=== PATIENT | male | born 1975 | race Caucasian/White ===

== ENCOUNTER 2018-01-25 23:16 | Emergency (ER) | END 2018-01-26 01:13 | disposition home or self-care (01) ==

== ENCOUNTER 2018-02-24 03:55 | Emergency (ER) | payer OTHER ==
[~2018-02-24] VITALS: Ht 182.9 cm; Wt 83.0 kg
[~2018-02-24 03:55] MED LIST: CEPH-443 PO; CEPH500C PO; HYDR-3498 PO; IBUP-1542 PO; NAPR-985 PO; SULF1TAB31 PO
[2018-02-24 03:59] VITALS: PULSE 94; Ht 182.9 cm; Wt 83.0 kg
[2018-02-24] MEDS ORDERED: CYCL10TA7 PO (06:47)
[2018-02-24] MEDS ORDERED: NAPR-985 PO (06:47)
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
[2018-02-24 07:00] VITALS: BP 117/75; RESP 18
[2018-02-24] MEDS ORDERED: CYCLOBENZAPRINE 10 MG TAB PO ONE (07:00)
[2018-02-24] MEDS ORDERED: HYDROCODONE/APAP (5/325) TAB PO ONE (07:00)
== END 2018-02-24 07:04 | disposition home or self-care (01) ==
LOC: FTE 03:55
DX: S29.012A Strain of muscle and tendon of back wall of thorax, initial encounter (principal); R51 Headache; M62.838 Other muscle spasm; Y08.89XA Assault by other specified means, initial encounter; Z87.891 Personal history of nicotine dependence
CPT/HCPCS: Z7502; Z7610; 99283

== ENCOUNTER 2018-07-10 15:34 | Emergency (ER) | payer SELFPAY ==
[~2018-07-10] VITALS: Ht 180.3 cm; Wt 83.6 kg
[~2018-07-10 15:34] MED LIST changes: +CYCL10TA7 PO
[2018-07-10 15:39] VITALS: Ht 180.3 cm; Wt 83.6 kg
[2018-07-10] MEDS ORDERED: ONDANSETRON 4 MG INJ IV STA (16:04)
[2018-07-10] MEDS ORDERED: SOD CHLORIDE 0.9% 1,000 ML IV STA (16:04)
[2018-07-10] MEDS ORDERED: KETOROLAC 15 MG INJ IV STA (16:04)
[2018-07-10] MEDS ORDERED: LACTATED RINGER'S 1,000 ML IV STA (16:12)
--- NOTE | 2018-07-10 16:14 | ERD ---
ER Documentation Chief Complaint Chief Complaint BIBA FOR RIGHT LOWER QUADRANT PAIN,S/P HERNIA REPAIR 2 DAYS AGO. HPI 42-year-old man status post right inguinal herniorrhaphy about 1 week ago brought in by EMS for agitation and methamphetamine abuse. Patient states he has postoperative pain and states he is dehydrated but denies fevers or chills, no dysuria or hematuria, no chest pain or shortness of breath. Patient denies suicidal homicidal ideation. Patient states he has ADHD and uses methylphenidate daily daily ROS All systems reviewed and are negative except as per history of present illness. Medications Home Meds Active Scripts Nicotine* (Nicotine* Patch) 21 mg/day Patch, 1 EACH TD DAILY PRN for CONTROL WITHDRAWAL SYMPTOMS, #14 PATCH Prov:CHRIS SUAREZ MD 07/10/18 Ibuprofen* (Motrin*) 600 Mg Tab, 600 MG PO Q8 PRN for PAIN AND/OR INFLAMMATION, #30 TAB Prov:CHRIS SUAREZ MD 07/10/18 Discontinued Reported Medications [none] Unknown Strength No Conflict Check 03/28/15 [Unknown] No Conflict Check 05/14/11 Discontinued Scripts Naproxen* (Naprosyn*) 500 Mg Tablet, 500 MG PO BID PRN for PAIN AND/OR INFLAMMATION, #30 TAB Prov:SHAWNA AYERS PA-C 02/24/18 Cyclobenzaprine Hcl* (Cyclobenzaprine Hcl*) 10 Mg Tablet, 10 MG PO TID, #9 TAB Prov:SHAWNA AYERS PA-C 02/24/18 Naproxen* (Naprosyn*) 500 Mg Tablet, 500 MG PO BID PRN for PAIN AND/OR INFLAMMATION, #30 TAB Prov:CORTNEY CAGLE PA-C 01/26/18 Cephalexin* (Keflex*) 500 Mg Capsule, 500 MG PO QID for 7 Days, CAP Prov:CORTNEY CAGLE PA-C 01/25/18 Sulfamethoxazole/Trimethoprim* (Bactrim Ds* Tablet) 1 Each Tablet, 1 TAB PO BID, #14 TAB Prov:CORTNEY CAGLE PA-C 01/25/18 Hydrocodone Bit-Acetaminophen* (Sunflower*) 5-325 Mg Tab, 1 TAB PO Q4H PRN for sev, #20 TAB Prov:ARNOLD GRAHAM NP 03/28/15 Ibuprofen* (Ibuprofen*) 600 Mg Tablet, 600 MG PO Q6H PRN for PAIN AND OR ELEVATED TEMP, #30 TAB Prov:ARNOLD GRAHAM NP 03/28/15 Cephalexin* (Cephalexin*) 500 Mg Capsule, 500 MG PO Q6 for 10 Days, CAP Prov:ARNOLD GRAHAM NP 03/28/15 Sulfamethoxazole-Trimethoprim (Bactrim DS Tablet) 800-160 Mg Tab, 1 TAB PO BID for 10 Days, TAB Prov:ARNOLD GRAHAM NP 03/28/15 Allergies Allergies: Coded Allergies: lorazepam (Verified Allergy, Unknown, 07/10/18) PMhx/Soc History of methamphetamine abuse, recent inguinal herniorrhaphy, hypertension, anxiety History of Surgery: Yes (skin graft surgery of right arm, colectomy, R Inguinal Hernia) Anesthesia Reaction: No Hx Neurological Disorder: Yes (Pt states ADD) Hx Respiratory Disorders: Yes (Asthma) Hx Cardiac Disorders: No Hx Psychiatric Problems: No Hx Miscellaneous Medical Probl: Yes (diverticulitis) Hx Alcohol Use: Yes (Every now and then.) Hx Substance Use: No Hx Tobacco Use: Yes Smoking Status: Current every day smoker FmHx Family History: No diabetes Physical Exam Vitals Vital Signs Date Temp Pulse Resp B/P (MAP) Pulse Ox O2 O2 Flow FiO2 Time Delivery Rate 07/10/18 98.5 100 18 104/65 99 Room Air 17:23 (78) 07/10/18 98.7 103 18 109/72 99 Room Air 15:50 (84) 07/10/18 98.7 110 18 145/79 99 15:39 (101) Physical Exam GENERAL: Well-developed, well-nourished, agitated, tremulous, afebrile HEENT: Dry mucous membranes, pink conjunctiva, no cervical spine tenderness or step-off deformities, no goiter, no jaundice or icterus, extraocular movements intact without pain. NEURO: Alert and oriented 3, cranial nerves II through XII intact bilaterally, pupils equal round reactive to light, no focal deficits or facial asymmetry, sensation intact distally Strength 5/5 in upper and lower extremities bilaterally CARDIAC: Tachycardic and regular, no murmurs rubs or gallops LUNGS: Clear bilaterally no wheezing crackles or stridor ABDOMEN: Soft nontender, no guarding, no rigidity, no rebound, no psoas sign no obturator sign. Surgical site at the right lower abdomen is clean and dry, sutures and Steri-Strips are in place there is no wound dehiscence, no purulent drainage or discharge, no surrounding skin erythema or induration SKIN: Warm and dry to touch, no abrasions, contusions, or hematomas, no lacerations, no ecchymosis, no target lesions, and without ulcers EXTREMITIES: No clubbing cyanosis or edema, calves are bilaterally symmetrical, no Homans sign, no popliteal cord sign. Distal pulses equal and bilateral PSYCH: Agitated, anxious, and tremulous overall consistent with acute methamphetamine intoxication Result Diagram: 07/10/18 1633 07/10/18 1633 Results 24 hrs Laboratory Tests Test 07/10/18 16:33 White Blood Count 9.1 10^3/ul Red Blood Count 3.52 10^6/ul Hemoglobin 9.3 g/dl Hematocrit 28.8 % Mean Corpuscular Volume 81.8 fl Mean Corpuscular Hemoglobin 26.4 pg Mean Corpuscular Hemoglobin Concent 32.3 g/dl Red Cell Distribution Width 14.7 % Platelet Count 411 10^3/UL Mean Platelet Volume 8.2 fl Immature Granulocytes % 0.300 % Neutrophils % 77.6 % Lymphocytes % 15.1 % Monocytes % 6.5 % Eosinophils % 0.2 % Basophils % 0.3 % Nucleated Red Blood Cells % 0.0 /100WBC Immature Granulocytes # 0.030 10^3/ul Neutrophils # 7.1 10^3/ul Lymphocytes # 1.4 10^3/ul Monocytes # 0.6 10^3/ul Eosinophils # 0.0 10^3/ul Basophils # 0.0 10^3/ul Nucleated Red Blood Cells # 0.0 10^3/ul Sodium Level 138 mmol/L Potassium Level 3.8 mmol/L Chloride Level 103 mmol/L Carbon Dioxide Level 27 mmol/L Anion Gap 8 Blood Urea Nitrogen 16 mg/dl Creatinine 0.77 mg/dl Est Glomerular Filtrat Rate mL/min > 60 mL/min Glucose Level 92 mg/dl Calcium Level 8.6 mg/dl Total Bilirubin 0.5 mg/dl Direct Bilirubin 0.00 mg/dl Indirect Bilirubin 0.5 mg/dl Aspartate Amino Transf (AST/SGOT) 30 IU/L Alanine Aminotransferase (ALT/SGPT) 27 IU/L Alkaline Phosphatase 74 IU/L Troponin I < 0.012 ng/ml Total Protein 7.4 g/dl Albumin 3.6 g/dl Globulin 3.80 g/dl Albumin/Globulin Ratio 0.94 Lipase 52 U/L Ethyl Alcohol Level < 10.0 mg/dl Current Medications Medications Dose Sig/Aparna Start Time Status Last (Trade) Ordered Route PRN Stop Time Admin Dose Reason Admin Sodium 1,000 ml @ Q1H STAT 07/10/18 DC 07/10/18 Chloride 1,000 mls/hr IV 16:04 16:43 07/10/18 17:03 Ondansetron 4 mg ONCE STAT 07/10/18 DC 07/10/18 HCl (Zofran IV 16:04 16:42 Inj) 07/10/18 16:05 Ketorolac 15 mg ONCE STAT 07/10/18 DC 07/10/18 Tromethamine IV 16:04 16:42 (Toradol) 07/10/18 16:05 Lactated 1,000 ml @ Q1H STAT 07/10/18 DC 07/10/18 Ringer's 1,000 mls/hr IV 16:12 16:43 07/10/18 17:11 Lorazepam 0.5 mg ONCE ONCE 07/10/18 DC (Ativan) IV 17:30 07/10/18 17:31 Procedures/MDM IV line was established patient was placed on cardiac nurse practitioner rhythm strip revealed a sinus tachycardia at 110 bpm with upright P and T waves. Patient was afebrile I administered 2 L of IV crystalloid for dehydration, Toradol 15 mg IV, Zofran 4 mg IV CBC revealed mild anemia, electrolytes revealed dehydration with increased BUN creatinine ratio, liver function test normal, troponin negative, ethanol level n egative EKG performed, read by me normal sinus rhythm at 99 bpm, normal axis, narrow QRS complex, no concerning ST elevations or depressions noted For anxiety I administered lorazepam 0.5 mg IV x1 Differential diagnoses considered, included but not limited to acute coronary syndrome, pulmonary embolism, aortic dissection, abdominal aortic aneurysm, sepsis, stroke, meningitis, encephalitis, pneumonia, appendicitis, cholecystitis, bowel obstruction, pyelonephritis, nephrolithiasis, cystitis, as well as metabolic, hematologic, and electrolyte abnormalities. As well as abscess, cellulitis, fractures, and dislocations. Patient feels much better at this time, and vital signs are normal, symptoms have improved. I did give strict instructions to return to the ED if symptoms continue or worsen, patient will otherwise follow-up with primary care physician. Patient understood instructions and agreed to plan. Disclaimer: Inadvertent spelling and grammatical errors are likely due to EHR/dictation software use and do not reflect on the overall quality of patient care. Also, please note that the electronic time recorded on this note does not necessarily reflect the actual time of the patient encounter. Departure Diagnosis: Primary Impression: Postoperative pain Additional Impressions: Acute anxiety Methamphetamine abuse Condition: Stable CHRIS SUAREZ MD July 10, 2018 16:14
[2018-07-10] MEDS ORDERED: IBUP-1542 PO (17:22)
[2018-07-10 17:23] VITALS: BP 104/65; PULSE 100; RESP 18
[2018-07-10] MEDS ORDERED: NICO-546 TD (17:25)
[2018-07-10] MEDS ORDERED: LORAZEPAM 2 MG INJ IV ONE (17:30)
== END 2018-07-10 18:23 | disposition home or self-care (01) ==
LOC: E/R 15:34
DX: G89.18 Other acute postprocedural pain (principal); F41.9 Anxiety disorder, unspecified; F15.10 Other stimulant abuse, uncomplicated; I10 Essential (primary) hypertension; J45.909 Unspecified asthma, uncomplicated; F17.210 Nicotine dependence, cigarettes, uncomplicated
CPT/HCPCS: 36415; 80053; 80307; 83690; 84484; 85025; 96374; 96375; 99284; J1885; J2060; J2405; J7030; J7120